=== PATIENT | female | born 2000 | race African-American/Black ===

== ENCOUNTER 2025-08-07 13:08 | Observation (INO) | payer MEDICAID, SELFPAY ==
[2025-08-07] VITALS (20 sets, daily range): BP systolic 120; BP diastolic 73–93; PULSE 86–101; RESP 18–93; TEMP 36.6; O2SAT 90–100; BMI 25.4
--- NOTE | 2025-08-07 13:23 | XR_ITS ---
Examination: Complete OB ultrasound greater than 14 weeks Date and time of exam: August 07, 2025, 1342 hours INDICATIONS: No care Findings: Viable intrauterine single fetus with single amniotic sac presentation cephalic Cardiac motion 135 bpm Placenta anterior grade 2 Medical cord insertion 3 vessels seen Amniotic fluid adequate spine maternal left Cervix 3.9 cm Ovaries obscured by bowel gas. Composite estimated gestational age based on BPD, head circumference, abdominal circumference, femur length is 23 weeks 0 days Estimated weight 535 g. Survey of intracranial anatomy, spinal anatomy, abdominal anatomy, four-chamber heart performed with no abnormalities identified. Impression: Viable intrauterine gestation in cephalic presentation.
[2025-08-07 14:38] LABS: Basophils # (Auto) 0.0 Thou/mm3 (0.0-0.2); Basophils % (Auto) 0 % (0-2.5); Eosinophils # (Auto) 0.1 Thou/mm3 (0.0-0.5); Eosinophils % (Auto) 1 % (0-10); Hematocrit 26.4 % (36.0-46.0); Immature Granulocytes Auto 0.10 Thou/mm3 (0.00-0.00); Lymphocytes # (Auto) 1.8 Thou/mm3 (1.0-4.8); Lymphocytes % (Auto) 16 % (10-50); Mean Corpuscular HGB Conc 29.9 g/dl (31.0-37.0); Mean Corpuscular Hemoglobin 22.8 pg (25.0-35.0); Mean Corpuscular Volume 76 fL (80-100); Monocytes # (Auto) 0.7 Thou/mm3 (0.0-0.8); Monocytes % (Auto) 6 % (0-12); Neutrophils # (Auto) 8.5 Thou/mm3 (1.8-7.7); Neutrophils % (Auto) 76 % (37-80); Nucleated Red Blood Cell # 0.00 Thou/mm3 (0.00-0.00); Nucleated Red Blood Cell % 0 /100 WBC (0); Platelet Count 344 Thou/mm3 (140-440); RDW Standard Deviation 43.8 fL (36.4-46.3); Red Blood Count 3.46 Miln/mm3 (4.00-5.20); White Blood Count 11.1 Thou/mm3 (3.6-11.0)
[2025-08-07 15:21] LABS: Hemoglobin 7.9 g/dL (12.0-16.0)
[2025-08-07 15:32] LABS: MHATP/TP-PA* See Sep Rpt; Syphilis Reactive (Nonreactive)
[2025-08-07 15:52] LABS: Hepatitis B Surface Antigen Non Reactive (Non React); Hepatitis C Antibody Non Reactive (Non React); Rubella, IgG Antibody Reactive (Immune)
[2025-08-07 15:54] LABS: HIV (1&2) Antibody Rapid Non-Reactive
[2025-08-07 18:16] LABS: Chlamydia trachomatis PCR Negative (Not Detect); Neisseria Gonorrhoeae DNA PCR Negative (Not Detect); Trichomonas Negative (Negative)
== END 2025-08-07 14:59 | disposition home or self-care (01) ==
PROVIDERS: Admitting Provider Obstetrics & Gynecology; PCP Family Medicine; Visit Provider Obstetrics & Gynecology
DX: O09.32 Supervision of pregnancy with insufficient antenatal care, second trimester (principal); O26.892 Other specified pregnancy related conditions, second trimester; R25.2 Cramp and spasm; Z3A.23 23 weeks gestation of pregnancy
CPT/HCPCS: 36415; 59025; 59899; 76805; 85025; 86703; 86762; 86780; 86803; 86850; 86900; 86901; 87340; 87491; 87591; 87661

== ENCOUNTER 2025-09-16 12:01 | Observation (INO) | payer MEDICAID, SELFPAY ==
[2025-09-16 12:00] VITALS: BP 123/85; PULSE 90; RESP 100; RESP 16; TEMP 36.6; BMI 28.0
[2025-09-16 12:07] VITALS: PULSE 84; O2SAT 100
[2025-09-16 12:12] VITALS: BP 123/85; PULSE 86; PULSE 87; O2SAT 100
[2025-09-16 12:17] VITALS: PULSE 90; O2SAT 100
[2025-09-16 12:22] VITALS: PULSE 99; O2SAT 100
[2025-09-16 12:27] VITALS: PULSE 86; O2SAT 99
== END 2025-09-16 13:30 | disposition home or self-care (01) ==
PROVIDERS: Admitting Provider Obstetrics & Gynecology; Visit Provider Obstetrics & Gynecology
DX: O36.8130 Decreased fetal movements, third trimester, not applicable or unspecified (principal); Z3A.28 28 weeks gestation of pregnancy
CPT/HCPCS: 59025; 59899; J0561